=== PATIENT | female | born 1980 | race Asian ===

== ENCOUNTER 2020-07-01 17:03 | Emergency (ER) | payer OTHER ==
[~2020-07-01] VITALS: Ht 160 cm; Wt 51.3 kg
[2020-07-01 17:09] VITALS: Ht 160 cm; Wt 51.3 kg
[2020-07-01 18:48] VITALS: BP 98/53
== END 2020-07-01 18:48 | disposition home or self-care (01) ==
LOC: ED 17:03
DX: H11.31 Conjunctival hemorrhage, right eye (principal)